=== PATIENT | female | born 1975 | race American Indian/Alaskan Native ===

== ENCOUNTER 2017-05-18 13:41 | Outpatient (CLI) | payer BC ==
--- NOTE | 2017-05-19 12:57 | Mammography Report ---
BILATERAL DIGITAL SCREENING MAMMOGRAM with CAD: 05/18/17 13:41:00 CLINICAL: Baseline screening. FINDINGS: The breasts are heterogeneously dense, which may obscure small masses. No mass, architectural distortion or suspicious calcifications. IMPRESSION: No mammographic evidence of malignancy. BI-RADS CATEGORY: 1 - - Negative RECOMMENDATION: Routine mammographic screening in one year. COMMENT: Patient follow-up letters are generated by our [employer] application.
== END 2017-05-18 13:42 | disposition home or self-care (01) ==
LOC: MAMMO 13:41
PROVIDERS: ATTEND Internal Medicine
DX: Z12.31 Encounter for screening mammogram for malignant neoplasm of breast (principal)
CPT/HCPCS: 77067

== ENCOUNTER 2020-09-29 20:00 | Emergency (ER) | payer SELFPAY | END 2020-09-29 22:00 | disposition left against medical advice (07) | LOC: ED 20:00 | DX: R42 Dizziness and giddiness (principal); Z53.21 Procedure and treatment not carried out due to patient leaving prior to being seen by health care provider ==

== ENCOUNTER 2020-10-26 21:02 | Emergency (ER) | payer SELFPAY ==
[2020-10-26] MEDS ORDERED: ACETAMINOPHEN 500 MG TAB PO ONE (22:38)
[2020-10-26 23:35] LABS: Basophils % (Auto) 0.7 % (0.0-1.8); Eosinophils # (Auto) 0.2 K/mm3 (0.0-0.4); Eosinophils % (Auto) 3.4 % (0.0-4.3); Hemoglobin 13.9 gm/dl (10.1-14.3); Lymphocytes # (Auto) 2.5 K/mm3 (1.2-5.4); Lymphocytes % (Auto) 43.2 % (13.4-35.0); Mean Corpuscular HGB Conc 34 % (30-34); Mean Corpuscular Volume 90 fl (79-97); Monocytes # (Auto) 0.4 K/mm3 (0.0-0.8); Monocytes % (Auto) 7.1 % (0.0-7.3); Platelet Count 182 K/mm3 (140-440); Red Blood Count 4.57 M/mm3 (3.65-5.03); Red Cell Distribution Width 12.6 % (13.2-15.2)
[2020-10-26 23:49] LABS: Alanine Aminotransferase 22 units/L (7-56); Albumin 4.9 g/dL (3.9-5); Blood Urea Nitrogen 7 mg/dL (7-17); Calcium 9.8 mg/dL (8.4-10.2); Hemolysis Index 0
[2020-10-26 23:52] LABS: BUN/Creatinine Ratio 10
[2020-10-27 00:09] LABS: Bacteria,Urine 1+ /HPF (Negative); Bilirubin,Urine NEG (Negative); Blood,Urine NEG (Negative); Color,Urine Yellow (Yellow); Mucus,Urine FEW /HPF; Urobilinogen,Urine < 2.0 mg/dL (<2.0)
[2020-10-27] MEDS ORDERED: HYDROcodone/ACETAMINOPHEN 5-325 MG TAB PO ONE ×2 (00:18→03:09)
[2020-10-27] MEDS ORDERED: ONDANSETRON 4 MG ODT TAB PO ONE ×2 (00:18→03:10)
--- NOTE | 2020-10-27 00:24 | Event Note ---
ED Screening Note Date of service: 10/27/20 Time: 00:22 ED Screening Note: Patient is a A0 45-year-old -[place] female with a history of chronic recurrent ovarian cyst and s/p oophorectomy presents to the ED with complaint of acute onset persistent severe right lower quadrant pain that radiates to the suprapubic area for the last 2 days. Patient states that the pain is constant, sharp and worse with ambulation. Patient denies fever, chills, nausea, vomiting, dysuria, urinary frequency and urgency, vaginal bleeding, vaginal discharge, dyspareunia, back pain, hematuria, traumatic injury or chest pain or shortness of breath. This initial assessment/diagnostic orders/clinical plan/treatment(s) is/are subject to change based on patients health status, clinical progression and re- assessment by fellow clinical providers in the ED. Further treatment and workup at subsequent clinical providers discretion. Patient/guardian urged not to elope from the ED as their condition may be serious if not clinically assessed and managed. Initial orders include: CBC, CMP, hCG, CT abdomen pelvis with contrast, UA
--- NOTE | 2020-10-27 01:33 | Cat Scan Report ---
CT ABDOMEN AND PELVIS WITH CONTRAST HISTORY: Pelvic pain. COMPARISON: None. TECHNIQUE: CT images of the abdomen and pelvis were obtained following administration of intravenous contrast. All CT scans at this location are performed using CT dose reduction for ALARA by means of automated exposure control. CONTRAST: 100 ml of intravenous contrast administered. FINDINGS: Lungs/bones: Lung bases are clear Abdomen/pelvis: There is diffuse fatty infiltration liver. The spleen, adrenal glands, pancreas, gal lbladder and upper GI tract appear normal. No definite renal stones are seen. The uterus is markedly enlarged with large calcified fibroids. One of the larger fibroids measures 4. 4 cm. Appendix appears normal. No significant free fluid is seen. There may be some mild thickening o f the distal sigmoid colon and rectum however this is not well visualized. No bowel obstruction is se en. No dominant adenopathy. IMPRESSION: 1. Uterus is markedly enlarged with multiple large calcified fibroids. One of the larger fibroids scott sures 4.4 cm. 2. Questionable mild thickening of the rectum however there is incomplete distention. Clinical correl ation. No focal inflammatory change and 3. Fatty infiltration of the liver. Signer Name: Jigar Ashley MD Signed: 10/27/2020 1:28 AM Workstation Name: [id number]
--- NOTE | 2020-10-27 02:46 | Emergency Department Report ---
ED Female HPI - General Chief complaint: Urogenital-Female Stated complaint: SEVERE PAIN IN PRIVATE AREA Source: patient Mode of arrival: Ambulatory Limitations: No Limitations - History of Present Illness Initial comments: Patient is a A0 45-year-old -[place]ian female with a history of chronic recurrent ovarian cyst and s/p oophorectomy presents to the ED with c omplaint of acute onset persistent severe right lower quadrant pain that radiates to the suprapubic area for the last 2 days. Patient states that the pain is constant, sharp and worse with ambulation. Patient denies fever, chills, nausea, vomiting, dysuria, urinary frequency and urgency, vaginal b leeding, vaginal discharge, dyspareunia, back pain, hematuria, traumatic injury or chest pain or shortness of breath. MD Complaint: pelvic pain -: Sudden, days(s) (2) Location: suprapubic Radiation: non-radiating Severity: severe Severity scale (0 -10): 8 Quality: sharp Consistency: constant Improves with: none Worsens with: none Are you Now?: No Associated Symptoms: denies other symptoms, abdominal pain (Suprapubic pain), loss of appetite. denies: vaginal discharge, vaginal bleeding, nausea/vomiting, fever/chills, headaches, dysuria, hematuria, rash, seizure, shortness of breath, syncope, weakness - Related Data Sexually active: Yes : 1 Para: 0 A: 0 Previous Rx's Medication Instructions Recorded Last Taken Type Albuterol Mdi (or & Nicu Only) 2 puff IH QID PRN #1 inhalation 12/22/17 Unknown Rx [ProAir HFA Inhaler] Ciprofloxacin HCl [Cipro] 500 mg PO BID #14 tablet 12/22/17 Unknown Rx Dicyclomine [Bentyl] 10 mg PO QID #15 capsule 12/22/17 Unknown Rx HYDROcodone/APAP 5-325 [[place] 1 each PO Q4HR PRN #12 tablet 12/22/17 Unknown Rx 5/325] Ondansetron [Zofran Odt] 4 mg PO Q8HR PRN #10 tab.rapdis 12/22/17 Unknown Rx Ibuprofen [Motrin] 600 mg PO Q8H PRN #30 tablet 10/27/20 Unknown Rx traMADoL [Ultram] 50 mg PO Q6HR PRN #12 tablet 10/27/20 Unknown Rx Allergies Allergy/AdvReac Type Severity Reaction Status Date / Time Penicillins Allergy Hives,ITCHI Verified 12/22/17 11:05 NG CEDROXPHIL Allergy Hives,SWELL Uncoded 12/22/17 11:05 ING,ITCHING ED Review of Systems ROS: Stated complaint: SEVERE PAIN IN PRIVATE AREA Other details as noted in HPI Constitutional: denies: chills, fever Eyes: denies: eye pain, eye discharge, vision change ENT: denies: ear pain, throat pain Respiratory: denies: cough, shortness of breath, wheezing Cardiovascular: denies: chest pain, palpitations Endocrine: no symptoms reported Gastrointestinal: abdominal pain (Suprapubic pain). denies: nausea, vomiting, diarrhea Genitourinary: denies: urgency, dysuria, discharge Musculoskeletal: denies: back pain, joint swelling, arthralgia Skin: denies: rash, lesions Neurological: denies: headache, weakness, paresthesias Psychiatric: denies: anxiety, depression Hematological/Lymphatic: denies: easy bleeding, easy bruising ED Past Medical Hx - Past Medical History Previous Medical History?: Yes Additional medical history: ovaryan cyst, retinal detatchment bilateral - Surgical History Past Surgical History?: Yes Additional Surgical History: , oophorectomy, retinal surgery, glaucoma surgery - Social History Smoking Status: Current Every Day Smoker Substance Use Type: Alcohol - Medications Home Medications: Home Medications Medication Instructions Recorded Confirmed Last Taken Type Albuterol Mdi (or & Nicu Only) 2 puff IH QID PRN #1 inhalation 12/22/17 Unknown Rx [ProAir HFA Inhaler] Ciprofloxacin HCl [Cipro] 500 mg PO BID #14 tablet 12/22/17 Unknown Rx Dicyclomine [Bentyl] 10 mg PO QID #15 capsule 12/22/17 Unknown Rx HYDROcodone/APAP 5-325 [[place] 1 each PO Q4HR PRN #12 tablet 12/22/17 Unknown Rx 5/325] Ondansetron [Zofran Odt] 4 mg PO Q8HR PRN #10 tab.rapdis 12/22/17 Unknown Rx Ibuprofen [Motrin] 600 mg PO Q8H PRN #30 tablet 10/27/20 Unknown Rx traMADoL [Ultram] 50 mg PO Q6HR PRN #12 tablet 10/27/20 Unknown Rx ED Physical Exam - General Limitations: No Limitations General appearance: alert, in no apparent distress - Head Head exam: Present: atraumatic, normocephalic, normal inspection - Eye Eye exam: Present: normal appearance, PERRL, EOMI Pupils: Present: normal accommodation - ENT ENT exam: Present: normal exam, normal orophraynx, mucous membranes moist, TM's normal bilaterally, normal external ear exam - Neck Neck exam: Present: normal inspection, full ROM. Absent: tenderness - Respiratory Respiratory exam: Present: normal lung sounds bilaterally. Absent: respiratory distress, wheezes, rales, rhonchi, chest wall tenderness, accessory muscle use, decreased breath sounds, prolonged expiratory - Cardiovascular Cardiovascular Exam: Present: regular rate, normal rhythm, normal heart sounds. Absent: systolic murmur, diastolic murmur, rubs, gallop - GI/Abdominal GI/Abdominal exam: Present: soft, tenderness (Palpable suprapubic tenderness), normal bowel sounds. Absent: guarding, rebound, hyperactive bowel sounds, hypoactive bowel sounds, organomegaly - Bi-manual exam: Present: other (Pelvic exam deferred at this time) - Extremities Exam Extremities exam: Present: normal inspection, full ROM, normal capillary refill - Back Exam Back exam: Present: normal inspection, full ROM. Absent: tenderness, CVA tenderness (R), CVA tenderness (L), muscle spasm, paraspinal tenderness, vertebral tenderness - Neurological Exam Neurological exam: Present: alert, oriented X3, CN II-XII intact, normal gait, reflexes normal - Psychiatric Psychiatric exam: Present: normal affect, normal mood - Skin Skin exam: Present: warm, dry, intact, normal color. Absent: rash ED Medical Decision Making - Lab Data Result diagrams: 10/26/20 23:09 10/26/20 23:09 - Radiology Data Radiology results: report reviewed, image reviewed [address] [address] Cat Scan Report Signed Patient: YAHIR ALMAGUER MR#: [id number] : 1975 Acct:[id number] Age/Sex: 45 / F ADM Date: 10/26/20 Loc: ED Attending Dr: Ordering Physician: MARYCHUY RUSSO Date of Service: 10/27/20 Procedure(s): CT abdomen pelvis w con Accession Number(s): [id number] cc: MARYCHUY RUSSO CT ABDOMEN AND PELVIS WITH CONTRAST HISTORY: Pelvic pain. COMPARISON: None. TECHNIQUE: CT images of the abdomen and pelvis were obtained following administration of intravenous contrast. All CT scans at this location are performed using CT dose reduction for ALARA by means of automated exposure control. CONTRAST: 100 ml of intravenous contrast administered. FINDINGS: Lungs/bones: Lung bases are clear Abdomen/pelvis: There is diffuse fatty infiltration liver. The spleen, adrenal glands, pancreas, gallbladder and upper GI tract appear normal. No definite renal stones are seen. The uterus is markedly enlarged with large calcified fibroids. One of the larger fibroids measures 4.4 cm. Appendix appears normal. No significant free fluid is seen. There may be some mild thickening of the distal sigmoid colon and rectum however this is not well visualized. No bowel obstruction is seen. No dominant adenopathy. IMPRESSION: 1. Uterus is markedly enlarged with multiple large calcified fibroids. One of the larger fibroids measures 4.4 cm. 2. Questionable mild thickening of the rectum however there is incomplete distention. Clinical correlation. No focal inflammatory change and 3. Fatty infiltration of the liver. Signer Name: Jigar Ashley MD Signed: 10/27/2020 1:28 AM Workstation Name: [id number] Transcribed By: GERONIMO Dictated By: MERYL ASHLEY MD Electronically Authenticated By: MERYL ASHLEY MD Signed Date/Time: 10/27/20127 DD/ 6 TD/TT: - Medical Decision Making This is a A0 45-year-old -[place]ian female with a history of chronic recurrent ovarian cyst and s/p oophorectomy presents to the ED with complaint of acute onset persistent severe right lower quadrant pain that radiates to the suprapubic area for the last 2 days. Patient states that the pain is constant, sharp and worse with ambulation. In the ED, patient is alert and oriented x3 and is not in any distress but appears to be in pain. Patient is hemodynamically stable. Patient was treated for pain in the ED and lab test results were reviewed and are all nonactionable. Abdomen pelvis CT scan with contrast showed uterus is markedly enlarged with multiple large calcified fibroids. One of the larger fibroids measures 4.4 cm. It also showed a questionable mild thickening of the rectum however there is incomplete distention. Clinical correlation. No focal inflammatory change and also fatty infiltration of the liver. On reevaluation, patient's pain is well controlled medication. Patient symptoms are likely due to uterine fibroids. Patient was discharged home on pain medications and advised to follow-up with her [facility] physician in 5 to 7 days for reevaluation or return to the ED immediately if symptoms get worse. - Differential Diagnosis UTI; ovarian cyst; ; fibroids; kidney stone; PID Critical care attestation.: If time is entered above; I have spent that time in minutes in the direct care of this critically ill patient, excluding procedure time. ED Disposition Clinical Impression: Suprapubic abdominal pain Uterine fibroid Qualifiers: Uterine leiomyoma location: intramural Qualified Code(s): D25.1 - Intramural leiomyoma of uterus Disposition: HOME / SELF CARE / HOMELESS Is pt being admited?: No Does the pt Need Aspirin: No Condition: Stable Instructions: Abdominal Pain, Adult, [id number], Uterine Fibroids, [id number] Additional Instructions: All lab test results were reviewed and are all nonactionable. Abdomen pelvis CT scan with contrast showed significantly large uterine fibroids. Your symptoms are likely due to the significantly large uterine fibroids. Therefore take medication with food, drink plenty of fluids and follow-up with your primary care physician or [facility] physician in 5 to 7 days for reevaluation. Return to the ED immediately if symptoms get worse. Prescriptions: Ibuprofen [Motrin] 600 mg PO Q8H PRN #30 tablet PRN Reason: Pain traMADoL [Ultram] 50 mg PO Q6HR PRN #12 tablet PRN Reason: Pain Referrals: BAILEY BLACKBURN MD [Staff Physician] - 3-5 Days Time of Disposition: 02:49 Print Language: MONGOLIAN
[2020-10-27] MEDS ORDERED: ACETAMINOPHEN 500 MG TAB PO ONE (03:09)
[2020-10-27 04:00] VITALS: BP 124/76
== END 2020-10-27 03:51 | disposition home or self-care (01) ==
LOC: ED 21:02
DX: D25.1 Intramural leiomyoma of uterus (principal); R10.2 Pelvic and perineal pain; F17.200 Nicotine dependence, unspecified, uncomplicated; Z88.0 Allergy status to penicillin; Z88.8 Allergy status to other drugs, medicaments and biological substances; Z79.899 Other long term (current) drug therapy; Z98.890 Other specified postprocedural states
CPT/HCPCS: 36415; 74177; 80053; 81001; 84703; 85025; 87086; 99284; Q9967; Q0162